=== PATIENT | female | born 1950 | race Caucasian/White ===

== ENCOUNTER → 2021-03-28 | Day surgery (SDC) | payer MEDICARE, OTHER ==
[~2021-03-28] VITALS: Ht 160 cm; Wt 75.0 kg
[~2021-03-28] MED LIST: DIAZ2TAB PO; IV RINGERS,LACTATED 1000ML 1,000 ML IV ONE; LEVO-101 PO; LEVO150T5 PO; LISI2.5T12 PO; METF10007 PO; MONT10TA49 PO; NAPR-514 PO; NAPR220C4 PO; OXYC1TAB15 PO; PROPOFOL 10 MG/ML (20ML) VIAL. IV ONE; SERT50TA PO; SITA50TA PO; VENL150C PO; VENL37.5 PO
[2021-03-28 08:20] VITALS: BP 146/78
[2021-03-28 09:52] VITALS: BP 161/72
--- NOTE | 2021-03-29 09:21 | CONS ---
DATE OF CONSULTATION: 03/28/2021 UPDATED HISTORY AND PHYSICAL REFERRING PHYSICIAN: Bhakti Barriga REASON FOR CONSULTATION: Positive Cologuard. HISTORY OF PRESENT ILLNESS: A 71-year-old female with past medical history significant for hypothyroidism, diabetes, is seen for colonoscopy. Recent Cologuard was positive. There is a family history of colon cancer with a cousin. There has been no change in bowel habits, diarrhea, constipation, melena and/or hematochezia. Weight and appetite are stable. She is otherwise without additional complaints. PAST MEDICAL HISTORY: Significant for hypothyroidism, hyperlipidemia, diabetes. ALLERGIES: ERYTHROMYCIN AND SIMVASTATIN. MEDICATIONS: Include levothyroxine, lisinopril, metformin, Januvia, Effexor, Thyroid Cancer. PAST SURGICAL HISTORY: Eye surgery, gallbladder surgery, hysterectomy, thyroid surgery. SOCIAL HISTORY: She is a social drinker, nonsmoker. REVIEW OF SYSTEMS: Per records. PHYSICAL EXAMINATION: GENERAL: Reveals a well-nourished, well-developed female. VITAL SIGNS: Temperature 97.2, pulse 89, respiratory rate 20. LUNGS: Clear. CARDIOVASCULAR: Reveals an S1, S2, without S3, S4 or appreciable murmur. ABDOMEN: Reveals with a soft abdomen, normal bowel sounds, without appreciable hepatosplenomegaly. EXTREMITIES: Reveals no cyanosis, clubbing or edema. IMPRESSION AND PLAN: Positive Cologuard. Family history of colon cancer. Colonoscopy is warranted at this time. Risks and benefits of procedure, including risk of hemorrhage and perforation during the operation were discussed. She is willing to proceed. JAMES DR: Jas TID: [id number]
--- NOTE | 2021-04-02 18:06 | PATHOLOGY ---
[facility] Accession Number: [id number] . 01 Material submitted: . PART A: rectum - RECTAL POLYP PART B: colon - TRANSVERSE COLON POLYP. Modifiers: transverse . 01 Clinical history: . + COLOGUARD COLON POLYP . 02 Diagnosis: A. Colorectal biopsies, rectal polyp: - Tubular adenoma. . B. Colon biopsy, transverse colon polyp: - Tubular adenoma. (JPM:pit; 04/02/2021) [facility] 04/02/2021 1003 Local . 02 Comment: There is no high-grade dysplasia or evidence of malignancy. (JPM:pit; 04/02/2021) . 02 Electronically signed: . Ghanshyam Woods MD, Pathologist NPI- [id number] . 01 Gross description: . A. The specimen is received in formalin, labeled "Chavo, Bhakti, rectal polyp" and consists of multiple darling irregular tissues aggregating 0.6 x 0.5 x 0.2 cm are submitted in toto in A1. . B. The specimen is received in formalin, labeled "Chavo, Bhakti, transverse colon polyp" and consists of a darling soft irregular tissue measuring 0.4 x 0.3 x 0.2 cm which is submitted in toto in B1.([place]; 03/29/2021) DKA/DKA 03/29/2021 1325 Local . 02 Pathologist provided ICD-10: D12.8, D12.3 . 02 CPT . 631735, [id number] Specimen Comment: A courtesy copy of this report has been sent to [phone], [phone] Specimen Comment: [id number] Specimen Comment: Report sent to / DR GONSALVES Specimen Comment: A duplicate report has been generated due to demographic updates. Performed at: 01 [facility] [address] [facility] [address], [place] [id number] MD Francis Mae MD Phone: [phone] Performed at: 02 [facility] [address] [place], [place] [id number] MD Ghanshyam Woods MD Phone: [phone]
== END | disposition home or self-care (01) ==
LOC: ENDOS 07:55
PROVIDERS: ATTEND Internal Medicine Gastroenterology
DX: R19.5 Other fecal abnormalities (principal); K64.0 First degree hemorrhoids; D12.8 Benign neoplasm of rectum; D12.3 Benign neoplasm of transverse colon; K63.89 Other specified diseases of intestine; E03.9 Hypothyroidism, unspecified; E11.9 Type 2 diabetes mellitus without complications; E78.00 Pure hypercholesterolemia, unspecified; J45.909 Unspecified asthma, uncomplicated; G47.30 Sleep apnea, unspecified; M19.90 Unspecified osteoarthritis, unspecified site; F41.9 Anxiety disorder, unspecified; F32.9 Major depressive disorder, single episode, unspecified; I10 Essential (primary) hypertension; Z90.710 Acquired absence of both cervix and uterus; Z90.49 Acquired absence of other specified parts of digestive tract; Z98.890 Other specified postprocedural states; Z79.899 Other long term (current) drug therapy; Z79.84 Long term (current) use of oral hypoglycemic drugs; Z88.1 Allergy status to other antibiotic agents; Z88.8 Allergy status to other drugs, medicaments and biological substances; Z80.0 Family history of malignant neoplasm of digestive organs
CPT/HCPCS: 45380; J2704; 88305